=== PATIENT | female | born 1940 | race Caucasian/White ===

== ENCOUNTER 2016-05-02 11:42 | Observation (INO) | payer MEDICARE, OTHER ==
--- OUTSIDE RECORDS SUMMARY | 2016-05-02 11:47 | XMS REPORT | Continuity of Care Document ---
:1940 Author Organization [facility] ([facility]) Address [address] [place] [address] Phone [phone] Care Team Providers Name Role Phone RoztanghueParker Primary Care Provider [phone] Source Comments This disclosure is being made pursuant to the Care Everywhere program, applicable federal and state laws, and may not contain all informaitonavailable regarding this patient.[facility] ([facility]) Active Allergies and Adverse Reactions Allergen Noted Date Severity Reactions Comments Beta-Blockers 09/13/2010 OTHER "can't function" (Beta-Adrenergic Blocking Agts) Metformin 09/13/2010 Nausea & Vomiting Topiramate 02/09/2011 OTHER "black out" Current Medications Prescription Sig. Disp. Refills Start Date End Date Status albuterol-ipratropium Use 3 mL by Active (DUONEB) 2.5-0.5 mg/3 mL inhalation 3 times inhalation solution daily as needed. fexofenadine 180 mg Take 180 mg by mouth Active tablet daily. insulin nph-regular inject Active (HUMULIN 70/30) 100 subcutaneously 2 unit/mL 70/30 injection times daily before meals. 62 units am and 60 units pm hydrochlorothiazide 25 mg Take 25 mg by mouth Active tablet daily. lisinopril 40 mg tablet Take by mouth Active daily. 40 mg in am and 20 mg in pm nitroglycerin 0.[address] 0.4 mg under Active tablet the tongue every 5 minutes as needed. simvastatin 80 mg tablet Take 80 mg by mouth Active every evening. omeprazole 40 mg capsule Take 40 mg by mouth Active daily. HYDROcodone-acetaminophen Take 1 Tab by mouth Active (VICODIN) 5-500 mg per every 6 hours as tablet needed. albuterol (PROVENTIL HFA) Use 2 Puffs by Active 90 mcg/Actuation inhaler inhalation every 6 hours as needed. Indications: Bronchospastic Pulmonary Disease ALPRAZolam (XANAX) 0.25 Take 0.25 mg by Active mg tablet mouth 4 times daily. carbidopa-levodopa 25-100 Take 1 Tab by mouth Active mg per tablet 4 times daily. Indications: Parkinsonism citalopram 20 mg tablet Take 20 mg by mouth Active daily. Indications: Depression diltiazem 120 mg ER Take 120 mg by mouth Active capsule daily. Indications: Hypertension erythromycin 250 mg EC Take 250 mg by mouth Active tablet 2 times daily. Indications: Gastroparesis mometasone (ASMANEX) 220 Use 1 Puff by Active mcg inhaler inhalation 2 times daily. 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 Diabetes 09/15/2010 HTN (hypertension) 09/15/2010 CAD (coronary artery disease) 09/15/2010 Asthma 09/15/2010 Migraines 09/15/2010 Arthritis 09/15/2010 Immunizations Name Dates Previously Given Next Due Pneumococcal, unspecified 08/24/2009 Social History Tobacco Use Types Packs/Day Years Used Date Never Smoker Smokeless Tobacco: Never Used Alcohol Use Drinks/Week oz/Week Comments No Last Filed Vital Signs Vital Sign Reading Time Taken Blood Pressure 139/49 03/17/2011 4:35 PM CLINICAL AUDITOR Pulse 60 03/17/2011 4:35 PM CLINICAL AUDITOR Temperature 35.6 C (96.1 F) 03/17/2011 4:35 PM CLINICAL AUDITOR Respiratory Rate 16 03/17/2011 4:35 PM CLINICAL AUDITOR Height 1.626 m (5' 4") 03/14/2011 2:30 PM CLINICAL AUDITOR Weight 124.059 kg (273 lb 8 oz) 03/14/2011 2:30 PM CLINICAL AUDITOR Body Mass Index 46.92 03/14/2011 2:30 PM CLINICAL AUDITOR Oxygen Saturation 100% 03/17/2011 4:35 PM CLINICAL AUDITOR Plan of Care Health Maintenance Due Date Last Done Comments Hepatitis B Vaccine (1 of 3 - Primary 1940 Series) Tdap Vaccine 1952 Td Vaccine 08/30/1959 Mammogram 1981 Colonoscopy 1991 Zoster Vaccine 2001 DIABETIC: Hemoglobin A1C 09/20/2001 03/23/2001, 11/24/2000 DIABETIC: Microalbumin 11/24/2001 11/24/2000 DIABETIC: Cholesterol 03/23/2002 03/23/2001, 11/24/2000 Diabetic: Hdl 03/23/2002 03/23/2001, 11/24/2000 Diabetic: Ldl 03/23/2002 03/23/2001 DIABETIC: Triglycerides 03/23/2002 03/23/2001 Osteoporosis Screening (DXA Bone Density) 2006 Pneumococcal Vaccine (1 of 2 - PCV13) 2006 DIABETIC: Foot Exam 02/22/2011 DIABETIC: Retinal Eye Exam 02/22/2011 Influenza Vaccine: Seasonal (#1) 10/05/2015 Results from Last 3 Months Not on file
[2016-05-02] MEDS ORDERED: ALBUTEROL SULFATE/IPRATROPIUM 3 ML NEBU IH PRN (12:41)
[2016-05-02] MEDS ORDERED: AZITHROMYCIN 250 MG TABLET PO ONE (12:43)
[2016-05-02] MEDS ORDERED: ACETAMINOPHEN 325 MG TABLET PO PRN (13:09)
[2016-05-02] MEDS ORDERED: ONDANSETRON HCL/PF 2 MG/ML VIAL IV PRN (13:10)
[2016-05-02 13:27] LABS: Hemoglobin 8.1 gm/dL (12.5-16.0); Mean Cell Volume 86.3 fl (78-100); Mean Corpuscular Hemoglobin 29.2 pg (27-31); Mean Corpuscular Hgb Conc 33.9 g/dl (32-36); Mean Platelet Volume 8.8 fl (6.0-9.5); Neutrophil # 5.7 K/mm3 (1.3-6.0); Neutrophil % 77.4 % (42-75.0); Platelet Count 180 K/mm3 (150-450); Red Blood Count 2.77 M/mm3 (4.2-5.4); Red Cell Distribution Width 14.7 % (11.5-14.0); White Blood Count 7.4 K/mm3 (4.0-10.5)
[2016-05-02] MEDS: METHYLPREDNISOLONE SOD SUCC 60 MG in WATER FOR INJ.,BACTERIOSTATIC 0 ML IV SCH ×3 (13:41→23:57)
[2016-05-02 13:42] LABS: Hematocrit 23.9 % (37.0-47.0)
[2016-05-02] MEDS: NORMAL SALINE 1,000 ML IV PRN (13:42)
[2016-05-02 13:43] LABS: Albumin * 3.6 gm/dl (3.4-5.0); Anion Gap 11.9 mmol/L (6.8-13.8); BUN/Creatinine Ratio 15.4 (9.0-21.6); Bilirubin, Total 0.3 mg/dL (0.0-1.1); Ca. Corrected For Albumin 8.5 mg/dL (8.4-10.2); Calcium * 8.5 mg/dL (7.9-10.9); Potassium 4.9 mmol/L (3.4-4.6); Total Protein 6.7 gm/dL (6.2-8.2)
[2016-05-02] MEDS ORDERED: ALBUTEROL SULFATE 2.5 MG/0.5 ML VIAL.NEB IH PRN (15:48)
[2016-05-02] MEDS ORDERED: NITROGLYCERIN 0.4 MG/TAB BTL SL PRN (16:17)
[2016-05-02] MEDS ORDERED: HYDROcodone/ACETAMINOPHEN 1 EACH TABLET PO PRN (16:17)
[2016-05-02] MEDS ORDERED: ALBUTEROL SULFATE 200 PUFF INHALER IH SCH (16:30)
[2016-05-02] MEDS: CARBIDOPA/LEVODOPA 25/100 1 TAB TABLET PO SCH (17:19)
[2016-05-02] MEDS: ALBUTEROL SULFATE/IPRATROPIUM 3 ML NEBU IH SCH (18:30)
[2016-05-02] MEDS ORDERED: ALBUTEROL SULFATE/IPRATROPIUM 3 ML NEBU IH SCH ×2 (19:00→21:00)
[2016-05-02] MEDS ORDERED: CARBIDOPA/LEVODOPA 25/100 1 TAB TABLET PO SCH ×2 (21:00)
[2016-05-02] MEDS ORDERED: SIMVASTATIN 40 MG TABLET PO SCH (21:00)
[2016-05-02] MEDS: DOCUSATE SODIUM 100 MG CAPSULE PO SCH (21:30)
[2016-05-02] MEDS: LISINOPRIL 40 MG TABLET PO SCH (21:32)
[2016-05-02] MEDS: ALPRAZolam 1 MG TABLET PO SCH (21:35)
[2016-05-02] MEDS: INSULIN GLARGINE,HUM.REC.ANLOG 100 UNITS/ML VIAL SC SCH (21:39)
[2016-05-03] MEDS: ALBUTEROL SULFATE/IPRATROPIUM 3 ML NEBU IH SCH ×3 (00:07→06:10)
[2016-05-03] MEDS: NORMAL SALINE 1,000 ML IV PRN (00:13)
[2016-05-03 05:18] LABS: Hematocrit 24.8 % (37.0-47.0); Hemoglobin 8.4 gm/dL (12.5-16.0); Mean Cell Volume 85.2 fl (78-100); Mean Corpuscular Hemoglobin 28.9 pg (27-31); Mean Corpuscular Hgb Conc 33.9 g/dl (32-36); Mean Platelet Volume 8.5 fl (6.0-9.5); Neutrophil # 6.2 K/mm3 (1.3-6.0); Neutrophil % 86.4 % (42-75.0); Platelet Count 169 K/mm3 (150-450); Red Blood Count 2.91 M/mm3 (4.2-5.4); Red Cell Distribution Width 14.6 % (11.5-14.0); White Blood Count 7.2 K/mm3 (4.0-10.5)
[2016-05-03 05:32] LABS: Anion Gap 16.9 mmol/L (6.8-13.8); BUN/Creatinine Ratio 17.9 (9.0-21.6); Calcium * 8.5 mg/dL (7.9-10.9); Carbon Dioxide 24.5 mmol/L (24-32.6); Estimated Creat Clear 36.4; Potassium 4.4 mmol/L (3.4-4.6)
[2016-05-03] MEDS ORDERED: PANTOPRAZOLE SODIUM 40 MG TABLET.EC PO SCH (07:00)
[2016-05-03 07:19] VITALS: BP 141/46
[2016-05-03] MEDS: METHYLPREDNISOLONE SOD SUCC 60 MG in WATER FOR INJ.,BACTERIOSTATIC 0 ML IV SCH (07:23)
[2016-05-03] MEDS: CARBIDOPA/LEVODOPA 25/100 1 TAB TABLET PO SCH (07:24)
--- NOTE | 2016-05-03 08:17 | DS ---
(1) Nausea & vomiting Problem: Resolved Qualifiers: Vomiting type: unspecified (2) Shortness of breath Diagnosis(s): with cough/F/C likley due to URi , viral with beginning Acute bronchitis. Problem: Resolved (3) Acute bronchitis Problem: Resolved Qualifiers: Bronchitis organism: unspecified organism Qualified Code(s): J20.9 - Acute bronchitis, unspecified (4) Parkinson disease Problem: Acute (5) Diabetes Problem: Chronic Qualifiers: Diabetes mellitus type: type 2 Diabetes mellitus complication status: with kidney complications Diabetes mellitus complication detail: with chronic kidney disease Diabetes mellitus terminal carman insulin use: with halfway use Chronic kidney disease stage: stage 3 (moderate) Qualified Code(s): E11.22 - Type 2 diabetes mellitus with diabetic chronic kidney disease; N18.3 - Chronic kidney disease, stage 3 (moderate); Z79.4 - manager terminal (current) use of insulin Description of Stay: Arlin Randhawa, is a 75-year-old white female, with previous medical history of diabetes mellitus type 2 Parkinson's disease hypertension hyperlipidemia chronic renal failure stage III who was seen in my office yesterday on 2016 for cough , nausea and vomiting. The patient said that she started having cough associated with fever and chills a few days prior to admission and on the day of her admission she had been having nausea and vomiting. She was admitted for observation and was started on IV Solu-Medrol antibiotic and breathing treatments she was also given Zofran for her nausea or vomiting. She is feeling better today and is stable to be discharge. Procedures Performed: none Discharge Disposition: Home self care Disposition: Home self-care Condition: Fair Discharge Activity: Activity as tolerated Discharge Diet: Consistent carbs Referrals: Parker Rosa MD [Primary Care Provider] - Problem Oriented Discharge Instructions to Patient/Family: Nausea and Vomiting , Adult, [id number], Heart Failure, [id number] Additional Patient Instructions (free text): [facility] Home Health- nursing. Will redraw labs prior to appointment in 2 weeks. Please fax discharge instructions and medications and call report to [facility] Home Health ext [phone]. Follow up with PCP in 2 weeks[address] Follow up with Dr. Rosa 05/17 at 10:45 Prescriptions (Any new or edited meds): Acetaminophen [Tylenol] 650 mg PO Q6H PRN #30 tablet PRN Reason: Pain/Fever Insulin Aspart [Novolog Flexpen] 30 unit SQ TID #7 insuln.pen Levofloxacin [Levaquin] 750 mg PO DAILY #5 tablet Prednisone [Deltasone] 40 mg PO DAILY #10 tablet Complete Home Medications List: Complete Home Medication List: Carbidopa/Levodopa 25/100 [Sinemet 25/100] 1 tab PO BID 04/19/12 Citalopram Hydrobromide [Citalopram HBr] 40 mg PO DAILY 04/19/12 Diltiazem HCl [Dilt-Cd] 120 mg PO DAILY 04/19/12 Lisinopril [Zestril] 40 mg PO BID 04/19/12 Lamoure-3/Dha/Epa/Fish Oil [Fish Oil Lamoure-3 Softgel] 1 each PO DAILY 04/19/12 Simvastatin [Zocor] 40 mg PO HS 04/19/12 Insulin Glargine,Hum.rec.anlog [Lantus] 50 unit SQ BID 09/08/12 Alprazolam [Xanax] 1 mg PO BID #0 09/10/12 Multivitamin/Iron/Folic Acid [Certagen] 1 tab PO DAILY #0 tablet 09/10/12 Polyethylene Glycol 3350 [Miralax] 17 gm PO DAILY #0 btl 09/10/12 Sennosides/Docusate Sodium [Senokot-S] 1 tab PO DAILY #0 tablet 09/10/12 Alendronate Sodium [Fosamax] 70 mg PO DAILY 03/31/14 Omeprazole [Prilosec] 40 mg PO DAILY 03/31/14 Calcium Carb & Citrate/Vit D3 [Calcium + D3 ER Tablet] 1 each PO DAILY 07/01/14 Docusate Sodium [Colace] 100 mg PO BID 07/01/14 Hydrochlorothiazide [Hydrodiuril] 25 mg PO BID 09/20/15 Hydrocodone/Acetaminophen [Drybranch 5-325 Tablet] 1 tab PO Q4H PRN 09/20/15 Albuterol Sulfate/Ipratropium [Duoneb 2.5-0.5MG/3ML Soln] 3 ml IH BID #1 nebu Albuterol Sulfate [Ventolin HFA] 1 puff IH Q6H 05/02/16 Carbidopa/Levodopa 25/100 [Sinemet 25/100] 1.5 tab PO BID 05/02/16 Folic Acid 1 mg PO DAILY 05/02/16 Nitroglycerin [Nitrostat] 0.4 mg SL Q5MIN PRN 05/02/16 Promethazine HCl 12.5 mg PO Q4H PRN 05/02/16 Acetaminophen [Tylenol] 650 mg PO Q6H PRN #30 tablet 05/03/16 Insulin Aspart [Novolog Flexpen] 30 unit SQ TID #7 insuln.pen 05/03/16 Levofloxacin [Levaquin] 750 mg PO DAILY #5 tablet 05/03/16 Prednisone [Deltasone] 40 mg PO DAILY #10 tablet 05/03/16 Amb Orders for Discharge: Basic Metabolic Panel Time Frame: 2 Weeks, Location: Determined By Patient CBC Time Frame: 2 Weeks, Location: Determined By Patient Home Oxygen Discharge Order Location: Determined By Patient
[2016-05-03] MEDS: DOCUSATE SODIUM 100 MG CAPSULE PO SCH (08:19)
[2016-05-03] MEDS: INSULIN GLARGINE,HUM.REC.ANLOG 100 UNITS/ML VIAL SC SCH (08:19)
[2016-05-03] MEDS: LISINOPRIL 40 MG TABLET PO SCH (08:20)
[2016-05-03] MEDS: ALPRAZolam 1 MG TABLET PO SCH (08:20)
[2016-05-03] MEDS ORDERED: FOLIC ACID 1 MG TABLET PO SCH (09:00)
[2016-05-03] MEDS ORDERED: CITALOPRAM HYDROBROMIDE 20 MG TABLET PO SCH (09:00)
[2016-05-03] MEDS ORDERED: POLYETHYLENE GLYCOL 3350 119 GM BTL PO SCH (09:00)
[2016-05-03] MEDS ORDERED: SENNOSIDES/DOCUSATE SODIUM 1 TAB TABLET PO SCH (09:00)
== END 2016-05-03 12:00 | disposition home or self-care (01) ==
LOC: MS 11:42
PROVIDERS: ADMIT Internal Medicine; ATTEND Internal Medicine
DX: J20.8 Acute bronchitis due to other specified organisms (principal); R11.2 Nausea with vomiting, unspecified; E11.9 Type 2 diabetes mellitus without complications; G20 Parkinson's disease; I10 Essential (primary) hypertension
CPT/HCPCS: 36415; 71020; 80048; 80053; 85025; 87040; 87081; 94640; 96365; 96372; 96375; 96376; G0378; G0379